=== PATIENT | male | born 1940 | race African-American/Black ===

== ENCOUNTER 2018-10-09 10:45 | Inpatient (IN) ==
[2018-10-09 11:51] LABS: Basophils % 0.7 % (0.0-0.8); Eosinophils # 0.3 10*3/uL (0.0-0.87); Eosinophils % 4.7 % (0.00-10.9); Hematocrit 38.6 VOL% (42.0-52.0); Hemoglobin 11.9 GM/DL (14.0-18.0); Immature Granulocytes % 0.7 %; Immature Granulocytes Absolute 0.04 #; Lymphocytes # 1.1 10*3/uL (1.4-4.0); Lymphocytes % 18.7 % (21.2-54.2); Mean Corpuscular HGB Conc 30.8 GM/DL (32-36); Mean Corpuscular Volume 100.5 FL (87-102); Mean Platelet Volume 10.8 FL (9.6-12.0); Monocytes % 10.7 % (1.7-12.7); Neutrophils % 64.5 % (38.7-73.9); Platelet Count 269 T/CUMM (130-400); Red Blood Count 3.84 MC/CUMM (3.8-5.5); Red Cell Distribution Width 13.6 % (9.3-17.3); White Blood Count 5.8 T/CUMM (4-12)
[2018-10-09 12:12] LABS: Apearance,Urine Slightly Hazy (Clear); Blood, Urine Negative (Negative); Glucose,Urine (UA) Negative (Negative); Hyaline Casts,Urine 15 /LPF (0-3); Ketones,Urine 5 mg/dL (Negative); Mucus,Urine Many /LPF (Occasional); Nitrite,Urine Negative (Negative); Protein,Urine 100 MG/DL; RBC,Urine 11 /HPF (0-4); Urine Color Amber (Yellow); Urine Specific Gravity 1.039 (1.001-1.035); WBC,Urine 8 /HPF (0-6)
[2018-10-09 12:13] LABS: Bilirubin,Urine Small mg/dL (Negative)
[2018-10-09 12:22] LABS: Calcium 8.4 MG/DL (8.5-10.1)
[2018-10-09 12:23] LABS: Albumin 3.2 G/DL (3.4-5.0)
[2018-10-09 12:28] LABS: Bilirubin,Total 0.7 MG/DL (0.2-1.0); Total Protein 6.5 G/DL (6.4-8.3)
[2018-10-09] MEDS ORDERED: cefTRIAXone 1,000 MG in SODIUM CHLORIDE 0.9% 100 ML IV STA (13:08)
[2018-10-09] MEDS ORDERED: FUROSEMIDE 40 MG/4 ML VIAL IV STA (13:08)
[2018-10-09] MEDS ORDERED: SODIUM CHLORIDE 0.9% 100 ML IV ONE (13:21)
[2018-10-09] MEDS ORDERED: LORazepam 2 MG/1 ML VIAL IV STA (14:18)
[2018-10-09] MEDS ORDERED: LORazepam 2 MG/1 ML VIAL ONE (14:26)
[2018-10-09] MEDS ORDERED: ONDANSETRON 4 MG/2 ML VIAL IV PRN (15:44)
[2018-10-09] MEDS: levETIRAcetam 500 MG TABLET PO SCH (21:35)
[2018-10-09] MEDS: TAMSULOSIN 0.4 MG CAPSULE PO SCH (21:35)
[2018-10-09] MEDS: APIXABAN 2.5 MG TABLET PO SCH (21:35)
[2018-10-09] MEDS: DONEPEZIL 5 MG TABLET PO SCH (21:35)
[2018-10-09] MEDS: DOCUSATE SODIUM 100 MG CAPSULE PO SCH (21:35)
[2018-10-09] MEDS ORDERED: HALOPERIDOL 5 MG/ML AMP IM PRN (21:52)
[2018-10-10] MEDS: ACETAMINOPHEN 325 MG TABLET PO PRN ×2 (03:38→11:38)
[2018-10-10 05:22] LABS: Basophils # 0.1 10*3/uL (0.0-0.2); Basophils % 0.9 % (0.0-0.8); Eosinophils # 0.3 10*3/uL (0.0-0.87); Eosinophils % 4.7 % (0.00-10.9); Hematocrit 39.7 VOL% (42.0-52.0); Hemoglobin 12.4 GM/DL (14.0-18.0); Immature Granulocytes % 0.5 %; Immature Granulocytes Absolute 0.03 #; Mean Corpuscular HGB Conc 31.2 GM/DL (32-36); Mean Corpuscular Volume 99.3 FL (87-102); Monocytes % 12.5 % (1.7-12.7); Neutrophils % 63.4 % (38.7-73.9); Platelet Count 267 T/CUMM (130-400); Red Cell Distribution Width 13.3 % (9.3-17.3); White Blood Count 5.8 T/CUMM (4-12)
[2018-10-10 05:37] LABS: Calcium 8.4 MG/DL (8.5-10.1); Osmolality,Calculated 286.8 MOS/KG (273-304)
[2018-10-10] MEDS: traMADol 50 MG TABLET PO PRN ×2 (06:20→23:37)
[2018-10-10] MEDS: POTASSIUM CHLORIDE 20 MEQ TABLET PO PRN ×4 (06:21→20:47)
[2018-10-10] MEDS ORDERED: TUBERCULIN SKIN TEST 0.1 ML SYRINGE INTRADERM ONE (07:38)
[2018-10-10] MEDS: AZITHROMYCIN 250 MG TABLET PO SCH (09:37)
[2018-10-10] MEDS: ATORVASTATIN 20 MG TABLET PO SCH (09:37)
[2018-10-10] MEDS: FINASTERIDE 5 MG TABLET PO SCH (09:37)
[2018-10-10] MEDS: METOPROLOL SUCCINATE XL 25 MG TABLET PO SCH (09:37)
[2018-10-10] MEDS: PANTOPRAZOLE 40 MG TABLET PO SCH (09:38)
[2018-10-10] MEDS: DOCUSATE SODIUM 100 MG CAPSULE PO SCH ×2 (09:38→20:46)
[2018-10-10] MEDS: cefTRIAXone 1,000 MG in SYRINGE 1 EACH IV SCH (09:38)
[2018-10-10] MEDS: amLODIPine 5 MG TABLET PO SCH (09:38)
[2018-10-10] MEDS: APIXABAN 2.5 MG TABLET PO SCH ×2 (09:42→20:46)
[2018-10-10] MEDS: levETIRAcetam 500 MG TABLET PO SCH ×2 (09:42→20:46)
[2018-10-10] MEDS ORDERED: GLUCAGON 1 MG VIAL IM PRN (14:16)
[2018-10-10] MEDS ORDERED: DEXTROSE 50% 25 GM/50 ML VIAL IV PRN (14:16)
[2018-10-10] MEDS ORDERED: DEXTROSE 10% 250 ML IV PRN (14:21)
[2018-10-10] MEDS: INSULIN LISPRO 100 UNIT/ML SUBCUT SCH ×2 (18:13→23:10)
[2018-10-10] MEDS: TAMSULOSIN 0.4 MG CAPSULE PO SCH (20:46)
[2018-10-10] MEDS: DONEPEZIL 5 MG TABLET PO SCH (20:46)
[2018-10-10] MEDS: ZIPRASIDONE 20 MG/1 ML VIAL IM PRN (23:39)
[2018-10-11] MEDS ORDERED: KETOROLAC 15 MG/1 ML VIAL IV ONE (02:50)
[2018-10-11 05:00] LABS: Basophils % 0.6 % (0.0-0.8); Eosinophils # 0.1 10*3/uL (0.0-0.87); Hematocrit 41.7 VOL% (42.0-52.0); Hemoglobin 12.9 GM/DL (14.0-18.0); Immature Granulocytes % 0.3 %; Immature Granulocytes Absolute 0.02 #; Lymphocytes % 14.4 % (21.2-54.2); Mean Corpuscular HGB Conc 30.9 GM/DL (32-36); Mean Corpuscular Volume 101.7 FL (87-102); Monocytes % 10.4 % (1.7-12.7); Neutrophils % 72.3 % (38.7-73.9); Platelet Count 266 T/CUMM (130-400); Red Cell Distribution Width 13.3 % (9.3-17.3)
[2018-10-11] MEDS ORDERED: KETOROLAC 15 MG/1 ML VIAL IV PRN (05:17)
[2018-10-11 05:39] LABS: Calcium 8.7 MG/DL (8.5-10.1); Osmolality,Calculated 291.7 MOS/KG (273-304)
[2018-10-11] MEDS: AZITHROMYCIN 250 MG TABLET PO SCH (09:29)
[2018-10-11] MEDS: METOPROLOL SUCCINATE XL 25 MG TABLET PO SCH (09:29)
[2018-10-11] MEDS: INSULIN LISPRO 100 UNIT/ML SUBCUT SCH ×4 (09:29→20:35)
[2018-10-11] MEDS: amLODIPine 5 MG TABLET PO SCH (09:29)
[2018-10-11] MEDS: APIXABAN 2.5 MG TABLET PO SCH ×2 (09:29→20:33)
[2018-10-11] MEDS: DOCUSATE SODIUM 100 MG CAPSULE PO SCH ×2 (09:29→20:33)
[2018-10-11] MEDS: PANTOPRAZOLE 40 MG TABLET PO SCH (09:29)
[2018-10-11] MEDS: FINASTERIDE 5 MG TABLET PO SCH (09:29)
[2018-10-11] MEDS: ATORVASTATIN 20 MG TABLET PO SCH (09:29)
[2018-10-11] MEDS: cefTRIAXone 1,000 MG in SYRINGE 1 EACH IV SCH (09:30)
[2018-10-11] MEDS: levETIRAcetam 500 MG TABLET PO SCH ×2 (09:32→20:32)
[2018-10-11] MEDS: ZIPRASIDONE 20 MG/1 ML VIAL IM PRN (17:57)
[2018-10-11] MEDS: DONEPEZIL 5 MG TABLET PO SCH (20:33)
[2018-10-11] MEDS: TAMSULOSIN 0.4 MG CAPSULE PO SCH (20:33)
[2018-10-12 04:51] LABS: Basophils # 0.1 10*3/uL (0.0-0.2); Basophils % 0.8 % (0.0-0.8); Eosinophils # 0.3 10*3/uL (0.0-0.87); Eosinophils % 4.1 % (0.00-10.9); Hematocrit 41.2 VOL% (42.0-52.0); Hemoglobin 12.6 GM/DL (14.0-18.0); Immature Granulocytes % 0.5 %; Immature Granulocytes Absolute 0.03 #; Lymphocytes # 1.5 10*3/uL (1.4-4.0); Lymphocytes % 21.9 % (21.2-54.2); Mean Corpuscular HGB Conc 30.6 GM/DL (32-36); Mean Corpuscular Volume 101.2 FL (87-102); Mean Platelet Volume 11.8 FL (9.6-12.0); Monocytes % 11.3 % (1.7-12.7); Neutrophils % 61.4 % (38.7-73.9); Platelet Count 256 T/CUMM (130-400); Red Blood Count 4.07 MC/CUMM (3.8-5.5); Red Cell Distribution Width 13.3 % (9.3-17.3); White Blood Count 6.7 T/CUMM (4-12)
[2018-10-12 05:04] LABS: Calcium 8.9 MG/DL (8.5-10.1); Osmolality,Calculated 288.8 MOS/KG (273-304)
[2018-10-12] MEDS ORDERED: FUROSEMIDE 40 MG/4 ML VIAL IV ONE (06:14)
[2018-10-12] MEDS: APIXABAN 2.5 MG TABLET PO SCH (10:28)
[2018-10-12] MEDS: levETIRAcetam 500 MG TABLET PO SCH (10:28)
[2018-10-12] MEDS: FINASTERIDE 5 MG TABLET PO SCH (10:28)
[2018-10-12] MEDS: METOPROLOL SUCCINATE XL 25 MG TABLET PO SCH (10:28)
[2018-10-12] MEDS: DOCUSATE SODIUM 100 MG CAPSULE PO SCH (10:28)
[2018-10-12] MEDS: AZITHROMYCIN 250 MG TABLET PO SCH (10:28)
[2018-10-12] MEDS: PANTOPRAZOLE 40 MG TABLET PO SCH (10:28)
[2018-10-12] MEDS: traMADol 50 MG TABLET PO PRN (10:29)
[2018-10-12] MEDS: TAMSULOSIN 0.4 MG CAPSULE PO SCH (10:29)
[2018-10-12] MEDS: ATORVASTATIN 20 MG TABLET PO SCH (10:29)
[2018-10-12] MEDS: amLODIPine 5 MG TABLET PO SCH (10:29)
[2018-10-12] MEDS: cefTRIAXone 1,000 MG in SYRINGE 1 EACH IV SCH (10:30)
[2018-10-12 12:41] VITALS: BP 162/90
[2018-10-12] MEDS ORDERED: QUEtiapine 25 MG TABLET PO SCH (21:00)
[2018-10-13] MEDS ORDERED: CEFDINIR 300 MG CAPSULE PO SCH (21:00)
== END 2018-10-12 12:43 | DRG 193 ==
LOC: N.ED 10:45 → N.EDINP 15:44 → N.2E 18:30
PROVIDERS: ADMIT Family Medicine; ATTEND Family Medicine